=== PATIENT | female | born 1950 | race Caucasian/White ===

== ENCOUNTER → 2016-10-25 | Outpatient (CLI) | payer MEDICARE, OTHER ==
[~2016-10-25] MED LIST: ESTRADIOL0.5 MG PO; GLUCOPHAGE XR750 MG PO; LEXAPRO10 MG PO; LIPITOR20 MG PO; METFORMIN HCL500 MG PO; MIRALAX PACK 171 PKT PO; MOBIC15 MG PO; NAPROSYN500 MG PO; NEURONTIN 300300 MG PO; PERCOCET 5-3251 EACH PO; TRIAMTERENE-HC1 EAC3 PO
[2016-10-25 09:16] LABS: HEMOGLOBIN 12.5 gm/dl (12.3-15.3); RED BLOOD COUNT 4.07 M/UL (4.00-5.10)
[2016-10-25 09:26] LABS: BUN/CREATININE RATIO 20 (0-10)
== END ==
LOC: OPSV2 08:00
PROVIDERS: Obstetrics & Gynecology
DX: Z01.812 Encounter for preprocedural laboratory examination (principal); Z01.810 Encounter for preprocedural cardiovascular examination; Z01.818 Encounter for other preprocedural examination; N81.6 Rectocele; Z88.1 Allergy status to other antibiotic agents; Z88.5 Allergy status to narcotic agent; Z88.0 Allergy status to penicillin
CPT/HCPCS: 36415; 71020; 80048; 81001; 85025; 93005

== ENCOUNTER 2016-11-01 07:56 | Day surgery (SDC) | payer MEDICARE, OTHER ==
[~2016-11-01] VITALS: Ht 152.4 cm; Wt 68.0 kg
[2016-11-01] MEDS ORDERED: LIPITOR20 MG PO (08:37)
[2016-11-01] MEDS ORDERED: MOBIC15 MG PO (08:38)
[2016-11-01] MEDS ORDERED: GLUCOPHAGE XR750 MG PO (08:39)
[2016-11-01] MEDS ORDERED: METFORMIN HCL500 MG PO (08:40)
[2016-11-01] MEDS ORDERED: ESTRADIOL0.5 MG PO (08:41)
[2016-11-01] MEDS ORDERED: NEURONTIN 300300 MG PO (08:41)
[2016-11-01] MEDS ORDERED: TRIAMTERENE-HC1 EAC3 PO (08:43)
[2016-11-01] MEDS ORDERED: LEXAPRO10 MG PO (08:43)
[2016-11-02 05:43] LABS: HEMOGLOBIN 10.4 gm/dl (12.3-15.3)
[2016-11-02] MEDS ORDERED: PERCOCET 5-3251 EACH PO (11:33)
[2016-11-02] MEDS ORDERED: MIRALAX PACK 171 PKT PO (11:33)
[2016-11-02] MEDS ORDERED: NAPROSYN500 MG PO (11:34)
== END 2016-11-02 12:28 | disposition home or self-care (01) ==
LOC: M/S 07:56 → OR 07:56 → M/S 13:39 → OR 11-02 12:28
PROVIDERS: Obstetrics & Gynecology
PROC: 0JQC0ZZ Repair Pelvic Region Subcutaneous Tissue and Fascia, Open Approach (ICD-10-PCS; 2016-11-01)
PROC: 0JQC0ZZ Repair Pelvic Region Subcutaneous Tissue and Fascia, Open Approach (ICD-10-PCS; 2016-11-01)
PROC: 0TSD0ZZ Reposition Urethra, Open Approach (ICD-10-PCS; principal; 2016-11-01 10:45)
PROC: 0USG0ZZ Reposition Vagina, Open Approach (ICD-10-PCS; 2016-11-01 10:45)
DX: N81.4 Uterovaginal prolapse, unspecified (principal); K46.9 Unspecified abdominal hernia without obstruction or gangrene; N81.82 Incompetence or weakening of pubocervical tissue; N36.42 Intrinsic sphincter deficiency (ISD); N39.3 Stress incontinence (female) (male); I10 Essential (primary) hypertension; E11.9 Type 2 diabetes mellitus without complications; K21.9 Gastro-esophageal reflux disease without esophagitis; E66.9 Obesity, unspecified; M19.90 Unspecified osteoarthritis, unspecified site; M81.0 Age-related osteoporosis without current pathological fracture; Z68.29 Body mass index [BMI] 29.0-29.9, adult; Z87.891 Personal history of nicotine dependence; Z88.0 Allergy status to penicillin; Z88.1 Allergy status to other antibiotic agents; Z91.013 Allergy to seafood; Z79.1 Long term (current) use of non-steroidal anti-inflammatories (NSAID); Z79.84 Long term (current) use of oral hypoglycemic drugs; Z79.899 Other long term (current) drug therapy; Z90.49 Acquired absence of other specified parts of digestive tract; Z90.710 Acquired absence of both cervix and uterus; Z98.890 Other specified postprocedural states
CPT/HCPCS: 36415; 82962; 85014; 85018; C1769; C1771; J1200; J1580; J2250; J2270; J2405; J2710; J2765; J2795; J3010; J7030; J7120; Q0163

== ENCOUNTER → 2020-07-05 | Outpatient (CLI) | payer MEDICARE, OTHER ==
[~2020-07-05] MED LIST changes: +ACID CONTROL150 MG PO; +DITROPAN XL10 MG PO; +LYRICA150 MG PO; +PRILOSEC OTC20 MG PO; +RELAFEN 750 MG750 MG PO; +SINGULAIR10 MG PO; +TRAZODONE HCL100 MG PO
== END ==
LOC: KOH-I 12:14
DX: J20.9 Acute bronchitis, unspecified (principal)
CPT/HCPCS: 71046

== ENCOUNTER → 2021-03-21 | Outpatient (CLI) | payer MEDICARE, OTHER | LOC: MAMO 14:41 | DX: Z12.31 Encounter for screening mammogram for malignant neoplasm of breast (principal) | CPT/HCPCS: 77063; 77067 ==

== ENCOUNTER → 2021-09-21 | Outpatient (CLI) | payer MEDICARE, OTHER ==
[2021-09-21 16:13] LABS: HEMOGLOBIN 11.7 gm/dl (12.3-15.3); RED BLOOD COUNT 4.15 M/UL (4.00-5.10); WHITE BLOOD COUNT 12.6 K/UL (4.5-11.0)
== END ==
LOC: LAB 15:33
PROVIDERS: Physician Assistant
DX: R19.7 Diarrhea, unspecified (principal); R11.0 Nausea
CPT/HCPCS: 36415; 80048; 80076; 82150; 83690; 85025

== ENCOUNTER → 2021-09-23 | Outpatient (CLI) | payer MEDICARE, OTHER | LOC: OPSV 13:04 | DX: E86.0 Dehydration (principal) | CPT/HCPCS: 96360 ==